=== PATIENT | female | born 1970 | race Two or more races ===

== ENCOUNTER 2018-10-08 12:28 | Inpatient (IN) | payer MEDICAID ==
[~2018-10-08] VITALS: Ht 152.4 cm; Wt 73.5 kg
[2018-10-08] MEDS ORDERED: SODIUM CHLORIDE 0.9% 1,000 ML IV ONE (12:40)
[2018-10-08] MEDS ORDERED: DIPHENHYDRAMINE 50MG/ML VIAL IV ONE (12:45)
[2018-10-08] MEDS ORDERED: FAMOTIDINE 20MG/2ML VIAL IV ONE (12:45)
[2018-10-08] MEDS ORDERED: METHYLPREDNISOLONE SOD SUCC 125 MG/2 ML VIAL IV ONE (12:45)
[2018-10-08] MEDS ORDERED: EPINEPHRINE 1:1000 1 MG/ML AMP INJ ONE (13:00)
[2018-10-08] MEDS ORDERED: HYDRALAZINE 20MG/ML VIAL IV ONE (13:00)
[2018-10-08 13:05] LABS: BASOPHILS % 0.9 % (0.0-2.0); EOSINOPHILS % 0.3 % (0.0-5.0); HEMATOCRIT. 39.7 % (36.0-48.0); HEMOGLOBIN. 13.5 g/dL (12.0-16.0); LYMPHOCYTES % 26.1 % (20.0-50.0); MEAN CORPUSCULAR HEMOGLOBIN 31.3 pg (28.0-32.0); MEAN CORPUSCULAR VOLUME 91.7 fL (81.0-99.0); MEAN PLATELET VOLUME 8.3 fl (7.4-10.4); MONOCYTES % 4.7 % (2.0-8.0); PLATELET 255 x1000/uL (130-400); RED BLOOD CELL COUNT 4.33 mill/uL (4.2-5.4); RED CELL DISTRIBUTION WIDTH 14.1 % (11.6-14.6)
[2018-10-08 13:13] LABS: CHLORIDE 107 mEq/L (98-107)
[2018-10-08 13:14] LABS: PARTIAL THROMBOPLASTIN TIME 24.3 sec (23.4-31.0); PROTHROMBIN TIME 10.3 sec (9.6-11.0)
[2018-10-08] MEDS ORDERED: POTASSIUM CHLORIDE 20MEQ TABLET SR PO ONE (13:45)
[2018-10-08] MEDS ORDERED: LORAZEPAM 2MG/ML CPJ ONE (13:50)
[2018-10-08] MEDS ORDERED: LORAZEPAM 2MG/ML CPJ IV ONE (14:00)
[2018-10-08] MEDS ORDERED: ZOLPIDEM TARTRATE 5MG TABLET PO PRN (14:30)
[2018-10-08] MEDS ORDERED: MAGNESIUM/ALUMINUM HYDROXIDE/SIMETHICONE 30ML UDC PO PRN (14:30)
[2018-10-08] MEDS ORDERED: DOCUSATE SODIUM 100MG CAPSULE PO PRN (14:30)
[2018-10-08] MEDS ORDERED: GUAIFENESIN 200MG/10ML SUGAR FREE UDC PO PRN (14:30)
[2018-10-08] MEDS ORDERED: LORAZEPAM 0.5MG TABLET PO PRN (14:30)
[2018-10-08] MEDS ORDERED: CLONIDINE 0.1MG TABLET PO PRN (14:30)
[2018-10-08] MEDS ORDERED: NITROGLYCERIN 0.4MG TABLET SL SL PRN (14:30)
[2018-10-08] MEDS ORDERED: ONDANSETRON HCL 4MG/2ML INJ IV PRN (14:30)
[2018-10-08] MEDS ORDERED: KETOROLAC 15MG/ML VIAL IV PRN (14:30)
[2018-10-08] MEDS ORDERED: POTASSIUM CHLORIDE 20MEQ TABLET SR PO SCH (14:30)
[2018-10-08] MEDS ORDERED: IPRATROPIUM/ALBUTEROL 0.5-3(2.5)MG/3ML NEB INH PRN (14:30)
[2018-10-08 15:00] VITALS: BP 133/79
[2018-10-08 15:34] VITALS: BP 137/79
[2018-10-08] MEDS ORDERED: KCL 20MEQ/100ML PREMIX 100 ML IV SCH (16:00)
[2018-10-08 16:40] LABS: *AMPHETAMINES SCREEN URINE NEGATIVE (NEGATIVE); *BARBITURATES SCREEN URINE NEGATIVE (NEGATIVE); *BENZODIAZEPINES SCREEN URINE NEGATIVE (NEGATIVE); *COCAINE SCREEN URINE NEGATIVE (NEGATIVE); METHADONE URINE SCREEN NEGATIVE (NEGATIVE)
[2018-10-08 16:41] LABS: CANNABINOID URINE SCREEN NEGATIVE (NEGATIVE); PHENCYCLIDINE URINE SCREEN NEGATIVE (NEGATIVE)
[2018-10-08 16:42] LABS: OPIATES URINE SCREEN NEGATIVE (NEGATIVE)
[2018-10-08] MEDS ORDERED: DIPHENHYDRAMINE 50MG/ML VIAL IV PRN (17:30)
[2018-10-08] MEDS ORDERED: DEXTROSE 50% WATER 50ML SYRINGE IV PRN (17:45)
[2018-10-08] MEDS ORDERED: FUROSEMIDE 40MG/4ML VIAL IVP NR (18:00)
[2018-10-08] MEDS: ENOXAPARIN 40MG/0.4ML SYR SUBCUT SCH (18:41)
[2018-10-08] MEDS: AMLODIPINE 10MG TABLET PO SCH (18:41)
[2018-10-08 19:31] LABS: CREATINE KINASE MB FRACTION 2.6 ng/mL (0.5-3.6)
[2018-10-08] MEDS: INSULIN LISPRO 100 UNITS/ML SUBCUT SCH ×2 (19:31→22:20)
[2018-10-08 20:00] VITALS: BP 163/92
[2018-10-08] MEDS: FAMOTIDINE 20MG TABLET PO SCH (21:28)
[2018-10-08] MEDS: METHYLPREDNISOLONE SOD SUCC 125 MG/2 ML VIAL IV SCH (21:28)
[2018-10-08] MEDS: BLOOD SUGAR DIAGNOSTIC STRIP TEST SCH (21:29)
[2018-10-08] MEDS: ACETAMINOPHEN 325MG TABLET PO PRN (23:35)
[2018-10-09] VITALS: BP 154/88
[2018-10-09 04:00] VITALS: BP 127/82
[2018-10-09] MEDS: BLOOD SUGAR DIAGNOSTIC STRIP TEST SCH ×2 (06:34→12:37)
[2018-10-09] MEDS: METHYLPREDNISOLONE SOD SUCC 125 MG/2 ML VIAL IV SCH ×2 (06:45→14:00)
[2018-10-09 09:12] VITALS: BP 139/76
[2018-10-09] MEDS: ACETAMINOPHEN 325MG TABLET PO PRN (09:25)
[2018-10-09] MEDS: AMLODIPINE 10MG TABLET PO SCH (09:25)
[2018-10-09] MEDS: FAMOTIDINE 20MG TABLET PO SCH (09:25)
[2018-10-09] MEDS: INSULIN LISPRO 100 UNITS/ML SUBCUT SCH ×2 (09:48→12:59)
[2018-10-09 10:25] VITALS: BP 137/79
[2018-10-09 12:00] VITALS: BP 130/70
[2018-10-09] MEDS: ENOXAPARIN 40MG/0.4ML SYR SUBCUT SCH (14:36)
[2018-10-09] MEDS ORDERED: MONTELUKAST SODIUM 10MG TABLET PO SCH (17:00)
== END 2018-10-09 14:49 | disposition home or self-care (01) | DRG 811 ==
LOC: ER 12:28 → 6WST 13:06 → ENRESERV 13:43
PROVIDERS: ADMIT Internal Medicine; ATTEND Internal Medicine
DX: T88.6XXA Anaphylactic reaction due to adverse effect of correct drug or medicament properly administered, initial encounter (principal); J96.00 Acute respiratory failure, unspecified whether with hypoxia or hypercapnia; K74.60 Unspecified cirrhosis of liver; E11.9 Type 2 diabetes mellitus without complications; T50.2X5A Adverse effect of carbonic-anhydrase inhibitors, benzothiadiazides and other diuretics, initial encounter; E78.5 Hyperlipidemia, unspecified; E87.6 Hypokalemia; I10 Essential (primary) hypertension; L50.9 Urticaria, unspecified; K76.0 Fatty (change of) liver, not elsewhere classified; I25.2 Old myocardial infarction; Y92.89 Other specified places as the place of occurrence of the external cause; Z87.442 Personal history of urinary calculi; Z88.8 Allergy status to other drugs, medicaments and biological substances; Z91.012 Allergy to eggs; Z91.013 Allergy to seafood
CPT/HCPCS: 36415; 71045; 80048; 80305; 82550; 82553; 82962; 83036; 84443; 84484; 93005; 96361; 96374; 96375; 99291; J0360; J1200; J1650; J1815; J1940; J2060; J2405; J2930; J3480; J3490; J7030; J7040